=== PATIENT | male | born 1970 | race Caucasian/White ===

== ENCOUNTER 2017-10-02 18:08 | Emergency (ER) | payer OTHER ==
[2017-10-02 18:20] VITALS: BP 159/106
--- NOTE | 2017-10-10 08:49 | UC ---
Lower Extremity/Ankle HPI - HPI Summary HPI Summary: Patient to urgent care complaining of right calf pain and swelling has been getting worse over the past week - History of Current Complaint Chief Complaint: UCLowerExtremity Stated Complaint: LEG PAIN Time Seen by Provider: 10/02/17 19:46 Hx Obtained From: Patient Onset/Duration: Gradual Onset, Lasting Weeks - 1, Worse Since - Getting worse daily Severity Initially: Moderate Severity Currently: Moderate Pain Intensity: 4 Pain Scale Used: 0-10 Numeric Aggravating Factor(s): Standing, Ambulation Alleviating Factor(s): Nothing Able to Bear Weight: Yes - Allergies/Home Medications Allergies/Adverse Reactions: Allergies Allergy/AdvReac Type Severity Reaction Status Date / Time No Known Allergies Allergy Verified 08/21/16 14:42 PMH/Surg Hx/FS Hx/Imm Hx Previously Healthy: No Cardiovascular History: Hypertension Psychological History: Anxiety - Surgical History Surgical History: None - Family History Known Family History: Positive: None - Social History Occupation: Employed Full-time Lives: With Family Alcohol Use: Weekly Alcohol Amount: wine monthly Substance Use Type: Marijuana Smoking Status (MU): Current Every Day Smoker Type: Cigarettes, eCigarettes Amount Used/How Often: 1/4 PPD Length of Time of Smoking/Using Tobacco: 27 yrs Have You Smoked in the Last Year: Yes Household Exposure Type: Cigarettes Cessation Counseling: Patient Advised to Stop Review of Systems Constitutional: Negative Skin: Negative Eyes: Negative ENT: Negative Respiratory: Negative Cardiovascular: Negative Gastrointestinal: Negative Genitourinary: Negative Motor: Negative Neurovascular: Negative Musculoskeletal: Edema - Right lower leg, Myalgia - Right lower leg Neurological: Negative Psychological: Negative Is Patient Immunocompromised?: No All Other Systems Reviewed And Are Negative: Yes Physical Exam Triage Information Reviewed: Yes Appearance: Well-Appearing, No Pain Distress, Well-Nourished Vital Signs: Initial Vital Signs Temp 98.1 F 10/02/17 18:13 Pulse 79 10/02/17 18:13 Resp 18 10/02/17 18:13 BP 159/106 10/02/17 18:13 Pulse Ox 97 10/02/17 18:13 Vital Signs Reviewed: Yes Eye Exam: Normal Eyes: Positive: Conjunctiva Clear ENT Exam: Normal ENT: Positive: Normal ENT inspection, Hearing grossly normal. Negative: Trismus , Muffled voice, Hoarse voice Dental Exam: Normal Neck exam: Normal Neck: Positive: Supple, Nontender Respiratory Exam: Normal Respiratory: Positive: No respiratory distress, No accessory muscle use Cardiovascular Exam: Normal Cardiovascular: Positive: RRR, Pulses Normal, Brisk Capillary Refill Musculoskeletal Exam: Other Musculoskeletal: Positive: Strength Intact, ROM Limited @ - right calf, Edema @ - right calf Neurological Exam: Normal Neurological: Positive: Alert Psychological Exam: Normal Skin Exam: Normal Lower Extremity Course/Dx - Course Course Of Treatment: Transfer patient to keep the [facility] emergency department for further evaluation of swelling in his right lower leg - Differential Dx/Diagnosis Provider Diagnoses: Swelling right lower leg, hypertension in poor control, nicotine dependence Discharge - Sign-Out/Discharge Documenting (check all that apply): Discharge - Discharge Plan Condition: Guarded Disposition: HOME Discharge Disposition Comment: by private car to [facility] emergency department ambulance for Patient Education Materials: Deep Vein Thrombosis (ED), Leg Edema (ED), Deep Vein Thrombosis Prevention (ED) Referrals: José Wynn MD [Primary Care Provider] - Additional Instructions: Valerie have given me some information about DVTs. Please go directly to the emergency department so you can have an ultrasound of your right lower leg to assure that a proper diagnosis - Billing Disposition and Condition Condition: GUARDED Disposition: HOME
== END 2017-10-02 20:05 | disposition home or self-care (01) ==
LOC: UCEAST 18:08
DX: R60.0 Localized edema (principal); M79.661 Pain in right lower leg; I10 Essential (primary) hypertension; F41.9 Anxiety disorder, unspecified; F17.210 Nicotine dependence, cigarettes, uncomplicated
CPT/HCPCS: 99212; G0463

== ENCOUNTER 2017-10-02 20:23 | Emergency (ER) | payer OTHER ==
--- NOTE | 2017-10-02 21:30 | RAD ---
HISTORY: Right leg pain TECHNIQUE: Multiple transverse and longitudinal ultrasound images were obtained of the veins of the right lower extremity using grayscale, color Doppler, and spectral Doppler imaging with and without compression and with augmentation. FINDINGS: VEINS: The common femoral vein, deep femoral vein, femoral vein and popliteal vein are compressible throughout their course, with normal flow on color Doppler imaging and normal response to augmentation on spectral Doppler imaging. SOFT TISSUES: The right popliteal fossa there is an avascular collection that is mostly anechoic with innumerable septations measuring 6.4 cm in length and approximately 2.6 x 4.4 cm in the axial plane. IMPRESSION: 1. No sonographic evidence of deep vein thrombosis. 2. Complex Bolanos's cyst.
[2017-10-02 22:13] VITALS: BP 164/85
--- NOTE | 2017-10-02 22:23 | ED ---
Lower Extremity - HPI Summary HPI Summary: Patient is a 46-year-old male presenting to the ED from urgent care with a chief complaint of right posterior knee and right calf pain which is been present 3 days. He endorses swelling and tightness. He remains ambulatory, but with a mild amount of pain. There is no erythema or warmth to the knee or posterior leg. Small amount of swelling and effusion, but calf is equal size to the contralateral calf. He is otherwise healthy, takes no medications and does not have a history of arthritis. Denies fevers, sweats, chills. He was sent over from urgent care to rule out a DVT. He denies any blood thinners or known coagulant disorder. He has never had anything like this before. He states per his work he is on his knees and ambulating frequently. - History of Current Complaint Chief Complaint: EDExtremityLower Stated Complaint: RT LEG PAIN Time Seen by Provider: 10/02/17 21:47 Hx Obtained From: Patient Onset of Pain: Hours Onset/Duration: Hours Severity Initially: Moderate Severity Currently: Moderate Pain Intensity: 0 Pain Scale Used: 0-10 Numeric Timing: Constant Location: Is Discrete @ - posterior calf and knee pain with swelling Character Of Pain: Aching Associated Signs And Symptoms: Positive: Swelling Aggravating Factor(s): Standing, Ambulation Alleviating Factor(s): Rest Able to Bear Weight: No - Risk Factors Gout Risk Factors: Negative DVT Risk Factors: Negative Septic Arthritis Risk Factor: Negative - Allergies/Home Medications Allergies/Adverse Reactions: Allergies Allergy/AdvReac Type Severity Reaction Status Date / Time No Known Allergies Allergy Verified 08/21/16 14:42 PMH/Surg Hx/FS Hx/Imm Hx Previously Healthy: Yes Cardiovascular History: Reports: Hx Hypertension - CONTROLLED WITH MEDS Denies: Hx Pacemaker/ICD Respiratory History: Reports: Hx Seasonal Allergies, Hx Sleep Apnea - new CPAP user, compliance issues., Other Respiratory Problems/Disorders - KNOWN BENIGN NODULE TO RT LUNG GI History: Reports: Hx Gastroesophageal Reflux Disease, Hx Ulcer History: Reports: Hx Kidney Stones Musculoskeletal History: Reports: Hx Back Problems - chronic pain, Hx Tendonitis - right "tennis" elbow Sensory History: Denies: Hx Hearing Aid Neurological History: Reports: Hx Headaches Psychiatric History: Reports: Hx Anxiety, Hx Depression, Hx Panic Disorder - Immunization History Hx Pertussis Vaccination: No Immunizations Up to Date: Unable to Obtain/Confirm Infectious Disease History: Yes Infectious Disease History: Reports: Hx of Known/Suspected MRSA Denies: Traveled Outside the [place] in Last 30 Days - Social History Occupation: Employed Full-time Lives: Dormitory/Roommates Alcohol Use: Weekly Alcohol Amount: wine monthly Hx Substance Use: Yes Substance Use Type: Reports: None, Marijuana Smoking Status (MU): Current Every Day Smoker Type: Cigarettes, eCigarettes Amount Used/How Often: 1/4 PPD Length of Time of Smoking/Using Tobacco: 27 yrs Have You Smoked in the Last Year: Yes Review of Systems Constitutional: Negative Negative: Fever, Chills, Fatigue, Skin Diaphoresis Eyes: Negative Cardiovascular: Negative Gastrointestinal: Negative Positive: no symptoms reported, see HPI Positive: Arthralgia Skin: Negative Psychological: Normal All Other Systems Reviewed And Are Negative: Yes Physical Exam Triage Information Reviewed: Yes Vital Signs On Initial Exam: Initial Vitals Temp Pulse Resp BP Pulse Ox 97.1 F 77 18 193/114 100 10/02/17 20:26 10/02/17 20:26 10/02/17 20:26 10/02/17 20:26 10/02/17 20:26 Vital Signs Reviewed: Yes Appearance: Positive: Well-Appearing, Well-Nourished Skin: Positive: Skin Color Reflects Adequate Perfusion Head/Face: Positive: Normal Head/Face Inspection Eyes: Positive: EOMI, JULIAN Neck: Positive: Supple, No Lymphadenopathy Respiratory/Lung Sounds: Positive: Clear to Auscultation, Breath Sounds Present Cardiovascular: Positive: Pulses are Symmetrical in both Upper and Lower Extremities Musculoskeletal: Positive: Normal, Strength/ROM Intact, Anselmo Sign Right. Negative: Anselmo Sign Left, Edema Left, Edema Right Neurological: Positive: Speech Normal Psychiatric: Positive: Normal, Affect/Mood Appropriate AVPU Assessment: Alert Diagnostics - Vital Signs Vital Signs Temp Pulse Resp BP Pulse Ox 10/02/17 22:12 97.0 F 72 18 164/85 100 10/02/17 20:26 97.1 F 77 18 193/114 100 - Laboratory Lab Statement: Any lab studies that have been ordered have been reviewed, and results considered in the medical decision making process. Lower Extremity Course/Dx - Course Course Of Treatment: During the course of treatment, the patient is evaluated for DVT versus Bolanos's cyst. IMPRESSION: 1. No sonographic evidence of deep vein thrombosis. 2. Complex Bolanos's cyst. I've discussed with Dr. Kimbrough. I will refer him to ortho. I have encouraged ice, ibuprofen and ortho consult. He agrees to this and is OK with discharge at this time. - Diagnoses Differential Diagnosis/HQI/PQRI: Positive: Bursitis Provider Diagnoses: Bakers cyst Discharge - Sign-Out/Discharge Documenting (check all that apply): Discharge - unable - Discharge Plan Condition: Stable Disposition: HOME Patient Education Materials: Bakers Cyst (ED) Referrals: Tan Rodriguez MD [Medical Doctor] - José Wynn MD [Primary Care Provider] - Additional Instructions: Anti-inflammatories which include ibuprofen 600mg three times daily Follow up with ORTHO for further medical management and any structural underlying cause - Billing Disposition and Condition Condition: STABLE Disposition: HOME
== END 2017-10-02 22:12 | disposition home or self-care (01) ==
LOC: ED 20:23
DX: M71.21 Synovial cyst of popliteal space [Baker], right knee (principal); I10 Essential (primary) hypertension; F17.210 Nicotine dependence, cigarettes, uncomplicated; M79.661 Pain in right lower leg
CPT/HCPCS: 99282

== ENCOUNTER 2019-03-06 11:44 | Emergency (ER) | payer MEDICAID, OTHER ==
[2019-03-06 11:50] VITALS: BP 194/100
--- NOTE | 2019-03-06 12:09 | UC ---
Dental HPI - HPI Summary HPI Summary: 48-year-old male presents with complaints of left upper dental pain since yesterday. Describes as constant throbbing. States has tried aspirin, naproxen, and tramadol without relief. Denies fever, chills, trismus, facial swelling, or drainage. - History of Current Complaint Chief Complaint: UCDentalProblem Stated Complaint: DENTAL COMPLAINT Time Seen by Provider: 03/06/19 12:04 Hx Obtained From: Patient Pain Intensity: 9 - Allergies/Home Medications Allergies/Adverse Reactions: Allergies Allergy/AdvReac Type Severity Reaction Status Date / Time No Known Allergies Allergy Verified 03/06/19 11:51 PMH/Surg Hx/FS Hx/Imm Hx Cardiovascular History: Hypertension Psychological History: Anxiety - Surgical History Surgical History: None - Family History Known Family History: Positive: Non-Contributory - Social History Occupation: Unemployed Lives: With Family Alcohol Use: Weekly Alcohol Amount: wine monthly Substance Use Type: Marijuana Smoking Status (MU): Current Every Day Smoker Type: Cigarettes, eCigarettes Amount Used/How Often: 1/4 PPD Length of Time of Smoking/Using Tobacco: 27 yrs Have You Smoked in the Last Year: Yes Household Exposure Type: Cigarettes Review of Systems All Other Systems Reviewed And Are Negative: Yes Constitutional: Negative: Fever, Chills ENT: Positive: Dental Pain. Negative: Sore Throat, Ear Ache, Nasal Discharge, Sinus Congestion, Sinus Pain/Tenderness Respiratory: Positive: Negative Cardiovascular: Positive: Negative Gastrointestinal: Positive: Negative Genitourinary: Positive: Negative Musculoskeletal: Positive: Negative Neurological: Positive: Negative Is Patient Immunocompromised?: No Physical Exam - Summary Physical Exam Summary: GENERAL APPEARANCE: Alert and cooperative adult male who appears to be uncomfortable holding the left side of his face. MOUTH/THROAT: Pharynx normal. No tonsilar inflammation, swelling, exudate, or lesions. Uvula midline. Multiple missing teeth and teeth in poor condition. The left upper 1st molar with a large dental patel at the base of the tooth. Mild gingival erythema without induration, fluctuance, or drainage. No trismus. NECK: Neck supple, non-tender without lymphadenopathy. CARDIAC: Normal S1 and S2. No S3, S4 or murmurs. Rhythm is regular. There is no peripheral edema, cyanosis or pallor. Extremities are warm and well perfused. Capillary refill is less than 2 seconds. Peripheral pulses intact. LUNGS: Clear to auscultation without rales, rhonchi, wheezing or diminished breath sounds. ABDOMEN: Positive bowel sounds. Soft, nondistended, nontender. No guarding or rebound. No masses or hepatosplenomegally. MUSKULOSKELETAL: ROM intact to all extremities. No joint erythema or tenderness. Normal muscular development. Normal gait. SKIN: Skin normal color, texture and turgor with no lesions or eruptions. Triage Information Reviewed: Yes Vital Signs: Initial Vital Signs Temp 98 F 03/06/19 11:47 Pulse 60 03/06/19 11:47 Resp 16 03/06/19 11:47 BP 194/100 03/06/19 11:47 Pulse Ox 100 03/06/19 11:47 Vital Signs Reviewed: Yes Dental Complaint Course/Dx - Course Course Of Treatment: 48-year-old male presents with complaints of left upper dental pain since yesterday. Describes as constant throbbing. States has tried aspirin, naproxen, and tramadol without relief. Denies fever, chills, trismus, facial swelling, or drainage. Afebrile. Hypertensive otherwise VSS. Patient had multiple missing teeth and teeth in poor condition. The left upper 1st molar with a large dental patel at the base of the tooth. Mild gingival erythema without induration, fluctuance, or drainage. No trismus. Remainder of exam was unremarkable. Will treat for a likely dental infection with Augmentin 875 mg BID x 10 days. Recommending OTC analgesics for pain and close follow up with dentist for definitive care. Anticipatory guidance and warning symptoms reviewed with patient. Verbalizes understanding and agrees with POC. - Differential Dx/Diagnosis Differential Diagnosis/Dx: Dental Abscess, Dental Caries, Fractured Tooth, Gingivitis, Odontogenic Pain, Peridontic Disease Provider Diagnosis: Pain, dental Discharge ED - Sign-Out/Discharge Documenting (check all that apply): Patient Departure All imaging exams completed and their final reports reviewed: No Studies - Discharge Plan Condition: Stable Disposition: HOME Prescriptions: Amoxicillin/Clavulanate TAB* [Augmentin TAB 875*] 875 mg PO BID #20 tab Patient Education Materials: Toothache (ED) Referrals: Seun Ramos [employer] [Primary Care Provider] - Additional Instructions: Start Augmentin 875 mg 1 tablet twice daily for 10 days. Take acetaminophen (Tylenol) or ibuprofen (Advil, Motrin) according to directions as needed for pain. Be sure to rinse your mouth out with a warm salt water solution after every time you eat to remove any debris. Make an appointment with your dentist at next available appointment. Seek immediate medical attention in the emergency room if you develop fever greater than 100.5 F, you are unable to open of close your mouth, are unable to swallow, have difficulty breathing, or any worsening of symptoms. - Billing Disposition and Condition Condition: STABLE Disposition: Home
== END 2019-03-06 12:20 | disposition home or self-care (01) ==
LOC: UCEAST 11:44
DX: K08.89 Other specified disorders of teeth and supporting structures (principal); I10 Essential (primary) hypertension; F41.9 Anxiety disorder, unspecified; F17.210 Nicotine dependence, cigarettes, uncomplicated
CPT/HCPCS: 99212; G0463

== ENCOUNTER 2019-06-22 18:04 | Observation (INO) | payer OTHER ==
--- OUTSIDE RECORDS SUMMARY | 2019-06-22 18:33 | XMS REPORT ---
:1970 Author Organization [facility] [employer] Care Team Providers Name Role Phone Dodie Gallardonda Primary Care Physician Unavailable Allergies, Adverse Reactions, Alerts Allergy Code CodeSystem Reaction Severity Criticality Status Start Substance Date Moderate Medications Medication Medication Medication Start Stop Route Dose Status Fill Code CodeSystem Date Date Instructions methylphenidate 5318718 RxNorm 2019- oral 54 mg completed for 30 HCl 5- 06-08 tablet day(s) extended release 24hr methylphenidate 1908277 RxNorm 2019- oral 54 mg completed HCl 06-10 tablet extended release 24hr bupropion HCl 663179 RxNorm oral 150 mg active for 30 3-26 tablet day(s) extended release 24 hr clonazepam 19740814 RxNorm 2019- oral 1 mg completed 06-10 tablet clonazepam 19740814 RxNorm 2019- oral 1 mg active for 15 6-10 -26 tablet day(s) methylphenidate 9491580 RxNorm 2019- oral 36 mg completed for 30 HCl - tablet day(s) extended release 24hr methylphenidate 0377733 RxNorm 2019- oral 54 mg active for 15 HCl 6-10 -26 tablet day(s) extended release 24hr clonazepam 19740814 RxNorm 2019- oral 1 mg completed for 30 - 06-08 tablet day(s) methylphenidate 9602170 RxNorm 2019- oral 36 mg 1 completed 1 tablet HCl - 05-09 tablet once a day extended for 30 day(s) release 24hr once a day clonazepam 19740814 RxNorm 2019- oral 1 mg completed for 30 -24 05-09 tablet day(s) zolpidem 397002 RxNorm 2019- oral 10 mg completed for 10 -09 tablet day(s) methylphenidate 6813875 RxNorm 2019- oral 54 mg 1 completed Take 1 tablet HCl 6-10 07-10 tablet every extended morning for release 30 day(s) 24hr every morning zolpidem 330462 RxNorm 2019- oral 10 mg 1 completed 1 tablet at 10-13-08 tablet bedtime for at 30 day(s) bedtime clonazepam 567884 RxNorm 2019- oral 1 mg 1 completed Take 1 tablet 6- 07-10 tablet three times three a day as times a needed for 30 day day(s) gabapentin 601114 RxNorm oral 300 mg active for 30 capsule day(s) bupropion HCl 718947 RxNorm 2019- oral 300 mg completed for 30 - 05- tablet day(s) extended release 24 hr bupropion HCl 808605 RxNorm 2019- oral 300 mg active for 30 11-12- tablet day(s) extended release 24 hr Problems Problem Name Code CodeSystem Alternate Alternate Start End Status Narrative Code CodeSystem Date Date Cocaine 50706128 SNOMED-CT Active dependence, in - remission Unspecified 11383825 SNOMED-CT Active anxiety 5-24 disorder 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, 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 Relevant diagnostic tests/laboratory data Narrative No Information Procedures Procedure Code CodeSystem Target Date of Status Service Device Device Device Name Site Procedure Delivery Code Name UID Location Psychotherap [id number] SNOMED-CT () 2018-10-29 complete Mental y, 45 04 d Health- minutes with [place] patient [address], [id number] Psychotherap [id number] SNOMED-CT () 2019-03-11 complete Mental y, 45 04 d Health- minutes with [place] patient [address], [id number] [phone] [place] [id number] SNOMED-CT () 2018-10-29 complete Mental other 7 d Health- outpatient [place] visit for [address], [facility], of an [facility] established [id number] patient, [phone] which requires at least 2 of these 3 [place] components: An expanded problem focused history; An expanded problem focused examination; Medical decision making of low Office or [id number] SNOMED-CT () 2019-01-26 complete Mental other 7 d Health- outpatient [place] visit for [address], established [id number] patient, [phone] which requires at least 2 of these 3 [place] components: An expanded problem focused history; An expanded problem focused examination; Medical decision making of low Office or [id number] SNOMED-CT () 2019-05-12 complete Mental other 6 d Health- outpatient [place] visit for [address], established [id number] patient, [phone] which requires at least 2 of these 3 [place] components: A problem focused history; A problem focused examination; Stra[place] ter[place] medical decision making. Counselin SNOMED-CT () 2018-10-13 complete Mental d Health[address], [phone] SNOMED-CT () 2019-05-04 complete Mental d [address], [id number] [phone] Encounters/Encounter Diagnoses Encounter Encounter Diagnosis Diagnosis Diagnosis Date of Service Name Code Code Name CodeSystem Diagnosis Delivery Location Non-Billable 08474 SNOMED-CT 2019-05-31 [facility] , , , Vital Signs No Information Social History Element Description Description Start End Code CodeSystem AdditionalInfo Date Date SexAssignedAtBirth Male 1971-0 M AdministrativeGender 11-28 Hospital Discharge Instructions Reason For Referral Medical Equipment FDA Assessments
--- OUTSIDE RECORDS SUMMARY | 2019-06-22 18:33 | XMS REPORT ---
:1970 Author Name Lola Gallardo Address [facility] [address] [place] [address] Care Team Providers Name Role Phone Lola Gallardo Unavailable Unavailable Shirin Garzon Unavailable Unavailable Allergies, Adverse Reactions, Alerts Allergy Code CodeSystem Reaction Severity Status Substance RxNorm Medications Medication Medication Medication Start Route Dose Status Fill Code CodeSystem Date Instructions RxNorm NoCurrentDosage No Longer NoCurrentFreque Active ncy methylphenidate RxNorm oral 36 mg tablet No for 30 HCl extended Longer day(s) release 24hr Active zolpidem RxNorm oral 10 mg tablet No for 10 Longer day(s) Active clonazepam RxNorm 2018-0 oral 1 mg tablet No for 30 4-24 Longer day(s) Active methylphenidate RxNorm 2019-0 oral 36 mg 1 tablet No 1 tablet HCl 4-09 extended Longer once a day release 24hr Active for 30 day(s) once a day zolpidem RxNorm 2019-0 oral 10 mg 1 tablet No 1 tablet at 4-09 at bedtime Longer bedtime for Active 30 day(s) bupropion HCl RxNorm 2018-0 oral 150 mg tablet Active for 30 3-26 extended day(s) release 24 hr bupropion HCl RxNorm 2018-0 oral 300 mg tablet No for 30 3-26 extended Longer day(s) release 24 hr Active gabapentin RxNorm oral 300 mg Active for 30 capsule day(s) clonazepam RxNorm 2019-0 oral 1 mg tablet No for 30 5-09 Longer day(s) Active methylphenidate RxNorm 2019-0 oral 54 mg tablet No for 30 HCl 5-09 extended Longer day(s) release 24hr Active bupropion HCl RxNorm 2019-0 oral 300 mg tablet Active for 30 5-09 extended day(s) release 24 hr clonazepam RxNorm 2019-0 oral 1 mg tablet Active for 15 6-10 day(s) methylphenidate RxNorm 2019-0 oral 54 mg tablet Active for 15 HCl 6-10 extended day(s) release 24hr methylphenidate RxNorm oral 54 mg tablet No HCl extended Longer release 24hr Active clonazepam RxNorm oral 1 mg tablet No Longer Active methylphenidate RxNorm 2018- oral 54 mg 1 tablet No Take 1 tablet HCl 6-10 extended Longer every release 24hr Active morning for every morning 30 day(s) clonazepam RxNorm 2018- oral 1 mg 1 tablet No Take 1 tablet 6-10 three times a Longer three times day Active a day as needed for 30 day(s) Hospital Discharge Medications Medication Direction Start Date Status Indications Fill Instuctions No Discharge Medication Problems Problem Name Code CodeSystem Start Date End Date Status SNOMED-CT 2018-09-25 Active SNOMED-CT 2018-11-27 Active SNOMED-CT 2018-11-27 Active SNOMED-CT 2019-03-01 Active SNOMED-CT 2019-03-01 Active Laboratory Values/Results Test Test Code Code System Actual Result Date LOINC Procedures Procedure Name Code CodeSystem Target Site Date of Procedure SNOMED-CT () 2018-10-13 SNOMED-CT () 2018-10-29 SNOMED-CT () 2018-10-29 SNOMED-CT () 2019-01-26 SNOMED-CT () 2019-03-11 Encounter Diagnosis Code CodeSystem Description Date Finding Finding Status Code 17021 [facility] Psychotherapy - - Active Individual 30 min 5 SNOMED-CT Vital Signs Vitals Date Value Immunizations Vaccine Name Vaccine Code CodeSystem Date Status Social History Element Description Start Date End Date Code CodeSystem Description SNOMED-CT Hospital Discharge Instructions Reason For Referral
--- OUTSIDE RECORDS SUMMARY | 2019-06-22 18:33 | XMS REPORT | Continuity of Care Document ---
:1970 External Reference #:[id number] Author Name Kandi Chong N.P. (transmitted by agent of provider Qian Denny) Address [address], [place] [address] Care Team Providers Name Role Phone Jaja Jamison MD - Orthopaedic Care Team Information Fuel Cell Battery Technician [phone] Surgery Bianka Caputo MD - Internal Care Team Information Fuel Cell Battery Technician Medicine Problems Active Problems Provider Date Benign essential hypertension José Wynn M.D. Onset: 11/04/2011 Malaise and fatigue José Wynn M.D. Onset: 11/04/2011 Anxiety state José Wynn M.D. Onset: 11/04/2011 Edema José Wynn M.D. Onset: 11/04/2011 Disorder of lung José Wynn M.D. Onset: 11/04/2011 Multiple joint pain José Wynn M.D. Onset: 12/16/2011 Testicular hypofunction Douglas Boyer M.D.,FACP Onset: 02/20/2012 Sleep apnea José Wynn M.D. Onset: 05/25/2012 Low back pain José Wynn M.D. Onset: 10/07/2013 Essential hypertension José Wynn M.D. Onset: 08/09/2015 Lateral epicondylitis Tan Rodriguez MD Onset: 07/14/2018 Sprain of ankle Tan Rodriguez MD Onset: 07/14/2018 Social History Type Date Description Comments Sex Unknown ETOH Use Rarely consumes alcohol Tobacco Use Reviewed: Patient is a current began age 13, was a 04/11/14 smoker, smokes every day regular smoker at 16. Smoking around 10 cigaretts daily. Smoking Status Reviewed: Patient is a current began age 13, was a 06/22/19 smoker, smokes every day regular smoker at 16. Smoking around 10 cigaretts daily. Exercise Exercises regularly PT back exercises Type/Frequency daily; walks/kayaks Allergies, Adverse Reactions, Alerts Active Allergies Reaction Severity Comments Date NKDA 07/22/2011 Adhesive On Testosterone red irritation where patch 08/03/2013 Patch applied, itching Medications Active Medications SIG Qnty Indications Ordering Date Provider [facility] Nicotine one patch once 28units Seun Ramos NP 11/16/2018 Transdermal System Step daily for 2 2 weeks. 14mg/24HR Patches 24HR Cyclobenzaprine HCL Take 1 Tablet By 60tabs Seun Ramos NP 09/30/2018 10mg Mouth Three Tablets Times Daily as Needed For Spasm Amlodipine Besylate Take 1 Tablet By 90tabs I10 Seun Ramos NP 07/22/2018 5mg Mouth Every Day Tablets Tramadol HCL 1-2 tablets 28tabs M25.571 Seun Ramos NP 06/01/2018 50mg Tablets every 12 hours as needed for pain. Axiron Apply 1 pump to 90ml E29.1 Seun Ramos NP 12/29/2017 30mg/Act Solution one underarm and two pumps to the other underarm daily (alternating arm with two pumps) Ventolin HFA 2 puffs by mouth 8gm J98.4 Seun Ramos NP 08/10/2015 108(90Base) four times a day mcg/Act Aerosol as needed Blood Pressure Monitor monitor home BP 1units José Zheng 05/18/2015 Digital/Manual as directed Yung Wynn Inflate/Reg Misc Clonidine HCL Take 1 Tablet By 180tabs Seun Ramos NP 01/13/2013 0.3mg Tablets Mouth Two Times Daily Lisinopril-Hydrochlorot Take 2 Tablets 180tabs Seun Ramos NP 04/14/2012 hiazide By Mouth Every 20-12.5mg Tablets Day Clonazepam 1-2 po qd prn 40tabs José Zheng 1mg Tablets Yung Wynn Bupropion XL 1 po daily 60tabs Unknown 300mg Tablets Multi Complete daily Unknown Capsules Methylphenidate HCL ER 1 by mouth every Unknown 36mg day Tablets ER Gabapentin 1 by mouth three 90caps Unknown 300mg Capsules times a day as needed Clindamycin HCL take 1 tab three Unknown 300mg times a day x10 Capsules days History Medications Lipitor One tablet once 30tabs Seun Ramos NP 03/23/2019 - 20mg Tablets daily 04/07/2019 Immunizations CPT Code Status Date Vaccine Lot # [id number] Given 08/18/2017 Influenza Virus Vaccine, Quadrivalent, Split, [id number] Preservative Free [id number] Given 03/25/2016 Fluvirin Im 3Yrs And Older [id number] Given 05/16/2015 Fluvirin Im 3Yrs And Older [id number] Given 04/11/2014 Pneumonia Vaccine [id number] Given 04/11/2014 Influenza Virus Vaccine, Quadrivalent, Split, [id number] Preservative Free [id number] Given 10/07/2013 Tdap - Tetanus/Diptheria/Acellular Pertussis [id number] Given 05/15/2012 Influenza Virus 3Yrs & Over Vital Signs Date Vital Result Comment 06/22/2019 4:23pm Heart Rate 74 /min BP Systolic 148 mmHg BP Diastolic 80 mmHg Body Temperature 99.7 F 04/07/2019 4:18pm Height 66 inches 5'6" Weight 201.50 lb Heart Rate 67 /min BP Systolic 126 mmHg BP Diastolic 83 mmHg Body Temperature 97.9 F O2 % BldC Oximetry 98 % BMI (Body Mass Index) 32.5 kg/m2 Results Test Acquired Facility Test Result H/L Range Note Date Testosterone 03/15/2019 [facility] Free 4.11 Abnormal 4.26- 16. 1 Free & Total [address] Testosterone ng/dL 4 [place] [address] ng/dl [phone] Testosterone 242 ng/dL 240-950 2 CBC Auto 03/15/2019 [facility] White Blood 7.5 10^3/uL Normal 3.5-10.[address] [place] [address] [phone] Red Blood Count 4.21 10^6/uL Normal 4.18-5.48 Hemoglobin 13.6 g/dL Low 14.0-18.0 Hematocrit 39 % Low 42-52 Mean Corpuscular Volume 93 fL Normal 80-94 Mean Corpuscular Hemoglobin 32 pg High 27-31 Mean Corpuscular HGB Conc 35 g/dL Normal 31-36 Red Cell Distribution Width 13 % Normal 10-15 Platelet Count 228 10^3/uL Normal 150-450 Mean Platelet Volume 8.8 fL Normal 7.4-10.4 Abs Neutrophils 4.8 10^3/uL Normal 1.5-7.7 Abs Lymphocytes 2.0 10^3/uL Normal 1.0-4.8 Abs Monocytes 0.6 10^3/uL Normal 0-0.8 Abs Eosinophils 0.2 10^3/uL Normal 0-0.6 Abs Basophils 0.1 10^3/uL Normal 0-0.2 Abs Nucleated RBC 0.0 10^3/uL Granulocyte % 63.1 % Lymphocyte % 26.1 % Monocyte % 7.4 % Eosinophil % 2.7 % Basophil % 0.7 % Nucleated Red Blood Cells % 0.0 Laboratory test 03/15/2019 [facility] PSA Screening 0.586 Normal 0-4.000 3 finding [address] [facility] ng/[place] [address] [phone] Lipid Profile 03/15/2019 [facility] Triglycerides 77 mg/dL 4 (Trig/Chol/HDL) [address] [place] [address] [phone] Cholesterol 213 mg/dL 5 HDL Cholesterol 49.2 mg/dL 6 LDL Cholesterol 148 mg/dL 7 Comp Metabolic 03/15/2019 [facility] Sodium 139 mmol/L Normal 135-145 Panel [address] [place] [address] [phone] Potassium 4.3 mmol/L Normal 3.5-5.0 Chloride 103 mmol/L Normal 101-111 Co2 Carbon Dioxide 32 mmol/L Normal 22-32 Anion Gap 4 mmol/L Normal 2-11 Glucose 115 mg/dL High 70-100 Blood Urea Nitrogen 23 mg/dL Normal 6-24 Creatinine 1.02 mg/dL Normal 0.67-1.17 BUN/Creatinine Ratio 22.5 High 8-20 Calcium 9.8 mg/dL Normal 8.6-10.3 Albumin 4.5 g/dL Normal 3.2-5.2 Alkaline Phosphatase 68 U/L Normal 34-104 Alt 20 U/L Normal 7-52 Ast 20 U/L Normal 13-39 Egfr Non- 78.0 >60 Egfr 94.3 >60 8 Total Bilirubin 0.80 mg/dL Normal 0.2-1.0 Total Protein 7.0 g/dL Normal 6.4-8.9 Globulin 2.5 g/dL Normal 2-4 Albumin/Globulin Ratio 1.8 Normal 1-3 1 ADDITIONAL INFORMATION Testing performed by [facility]. This test was developed and its performance characteristics determined by [facility] in a manner consistent with CLIA requirements. This test has not been cleared or approved by the U.S. Food and Drug Administration. 2 ADDITIONAL INFORMATION Testing performed by Liquid Chromatography-Tandem Mass Spectrometry (LC-MS/MS). This test was developed and its performance characteristics determined by [facility] in a manner consistent with CLIA requirements. This test has not been cleared or approved by the U.S. Food and Drug Administration. Test Performed by: [facility] [place] [address] [facility]: Cj Mcclain M.D. Ph.D.; CLIA# [id number] 3 Serum levels of PSA measured using the [employer] DXI Hybritech immunoassay should not be interpreted as absolute evidence of the presence or absence of disease. The PSA value should be used in conjunction with other pertinent clinical diagnostic procedures. A PSA value in the range of 0.1 to 0.6 ng/ml is indeterminate if being used as an indicator of recurrent or residual disease. The values obtained with different assay methods or kits cannot be used interchangeably. 4 Desirable: <150 Borderline High: 150-199 High: 200-499 Very High: >500 5 Desirable: <200 Borderline High: 200-239 High: >239 6 Low: <40 Desirable: 40-60 High: >60 7 Desirable: <100 Near Optimal: 100-129 Borderline High: 130-159 High: 160-189 Very High: >189 8 Because ethnic data is not always readily available, this report includes an eGFR for both -Americans and non- Americans. The National Kidney Disease Education Program (NKDEP) does not endorse the use of the MDRD equation for patients that are not between the ages of 18 and 70, are , have extremes of body size, muscle mass, or nutritional status, or are non- or non-. According to the National Kidney Foundation, irrespective of diagnosis, the stage of the disease is based on the level of kidney function: Stage Description GFR(mL/min/1.73 m(2)) 1 Kidney damage with normal or decreased GFR 90 2 Kidney damage with mild decrease in GFR 60-89 3 Moderate decrease in GFR 30-59 4 Severe decrease in GFR 15-29 5 Kidney failure <15 (or dialysis) Procedures Date Code Description Status 01/17/2012 [id number] Diabetic Retinal Eye Exam Completed Medical Devices Description No Information Available Encounters Type Date Location Provider Dx Diagnosis Office Visit 04/07/2019 [facility] Internal Seun Ramos NP I10 Essential (primary ) 4:20p [facility] hypertension D64.9 Anemia, unspecified F17.210 Nicotine dependence, cigarettes, uncomplicated E29.1 Testicular hypofunction E78.5 Hyperlipidemia, unspecified Z31.41 Encounter for fertility testing Assessments Date Code Description Provider 06/22/2019 L03.211 Cellulitis of face Kandi Chong, N.P. 04/07/2019 I10 Essential (primary) hypertension Seun Ramos NP 04/07/2019 D64.9 Anemia, unspecified Seun Ramos NP 04/07/2019 F17.210 Nicotine dependence, cigarettes, uncomplicated Seun Ramos NP 04/07/2019 E29.1 Testicular hypofunction Seun Ramos NP 04/07/2019 E78.5 Hyperlipidemia, unspecified Seun Ramos NP 04/07/2019 Z31.41 Encounter for fertility testing Seun Ramos NP Plan of Treatment Future Appointment(s):10/07/2019 4:20 pm - Seun Ramos NP at [facility] Internal Medicine [facility]06/22/2019 - Kandi Chong, N.P.L03.211 Cellulitis of faceComments:For your cellulitis I am sending you to the ER as you most likely will need IV antibiotics. Functional Status Description No Information Available Mental Status Description No Information Available Referrals Description No Information Available
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
[2019-06-22] MEDS ORDERED: Morphine 4 MG/ML VIAL (1 ml) 4 MG/ML VIAL IV ONE ×2 (19:33→22:39)
[2019-06-22] MEDS ORDERED: Clindamycin 300 MG IVPREMIX* 300 MG/50 ML SDV IVPB ONE (19:33)
[2019-06-22] MEDS ORDERED: Dexamethasone IV* 4 MG/ML 1 ML (4 MG) IV SLOW PU ONE (19:33)
[2019-06-22 19:56] LABS: ABS Eosinophils 0.1 10^3/ul (0-0.6); ABS Lymphocytes 1.1 10^3/ul (1.0-4.8); ABS Monocytes 1.1 10^3/ul (0-0.8); ABS Neutrophils 10.7 10^3/ul (1.5-7.7); Eosinophil % 0.6 %; Hematocrit 37 % (42-52); Hemoglobin 13.2 g/dL (14.0-18.0); Lymphocyte % 8.2 %; Mean Corpuscular HGB Conc 35 g/dL (31-36); Mean Corpuscular Hemoglobin 32 pg (27-31); Mean Corpuscular Volume 92 fL (80-94); Mean Platelet Volume 8.8 fL (7.4-10.4); Platelet Count 213 10^3/uL (150-450); Red Blood Count 4.07 10^6 /uL (4.18-5.48); Red Cell Distribution Width 13 % (10-15)
[2019-06-22 20:09] LABS: Albumin 4.6 g/dL (3.2-5.2); Albumin/Globulin Ratio 1.5 (1-3); BUN/Creatinine Ratio 15.2 (8-20); C Reactive Protein 80.01 mg/L (<8.01); Calcium 9.6 mg/dL (8.6-10.3); EGFR African American 97.6 (>60); EGFR Non-African American 80.7 (>60); Potassium 3.1 mmol/L (3.5-5.0); Total Bilirubin 0.5 mg/dL (0.2-1.0); Total Protein 7.6 g/dL (6.4-8.9)
[2019-06-22] MEDS ORDERED: Iohexol 300* (CONTRAST) 10 ML SDV IV ONE (20:18)
[2019-06-22] MEDS ORDERED: NS 0.9% 1000 ML** 1,000 ML IV ONE (22:03)
[2019-06-22] MEDS ORDERED: cloNIDine TAB* 0.1 MG PO ONE (23:45)
[2019-06-23] MEDS ORDERED: Hydrochlorothiazide TAB* 25 MG PO ONE (00:05)
[2019-06-23] MEDS ORDERED: amLODIPine TAB* 5 MG PO ONE (00:05)
[2019-06-23] MEDS ORDERED: Lisinopril TAB* 10 MG PO ONE (00:05)
[2019-06-23] MEDS ORDERED: Ondansetron INJ* 2 MG/ML VIAL IV PRN (00:53)
[2019-06-23] MEDS ORDERED: Acetaminophen TAB* 325 MG PO PRN (00:53)
[2019-06-23] MEDS ORDERED: traMADol TAB* 50 MG PO PRN (00:53)
[2019-06-23] MEDS ORDERED: Cyclobenzaprine TAB* 10 MG PO PRN (00:53)
[2019-06-23] MEDS ORDERED: Piperacillin/Tazobac ADVAN(*) 3.375 GM in NS 0.9% 100 ML* 100 ML IVPB ONE (00:55)
[2019-06-23] MEDS ORDERED: KCL 20 MEQ/100 ML IVPREMIX* 20 MEQ/100 ML BAG IV ONE (00:56)
[2019-06-23] MEDS ORDERED: Clindamycin VIAL(*) 450 MG in NS 0.9% 50 ML* 50 ML IVPB SCH (01:00)
[2019-06-23] MEDS ORDERED: Zosyn per Pharmacy* NOTE FOLLOW UP SCH (01:00)
[2019-06-23] MEDS ORDERED: NS 0.9% w/ 20 Meq KCL 1000 ML* 1,000 ML IV SCH (01:00)
[2019-06-23] MEDS: Ibuprofen TAB* 400 MG PO PRN ×3 (03:18→19:50)
[2019-06-23] MEDS ORDERED: Albuterol HFA INHALER* 8 gm MDI INH PRN (03:50)
[2019-06-23] MEDS ORDERED: Gabapentin CAP(*) 300 MG PO ONE (03:51)
[2019-06-23] MEDS ORDERED: clonazePAM TAB(*) 1 MG PO SCH (04:00)
[2019-06-23] MEDS: Dexamethasone IV* 4 MG/ML 1 ML (4 MG) IV SLOW PU SCH ×3 (06:37→21:12)
[2019-06-23] MEDS: ZOSYN 3.375 GM Q8H per EXTENDED INFUSION IVPB SCH ×6 (06:51→21:24)
[2019-06-23 07:20] LABS: ABS Basophils 0.1 10^3/ul (0-0.2); ABS Lymphocytes 0.8 10^3/ul (1.0-4.8); ABS Monocytes 0.3 10^3/ul (0-0.8); ABS Neutrophils 10.7 10^3/ul (1.5-7.7); Hematocrit 35 % (42-52); Hemoglobin 12.1 g/dL (14.0-18.0); Mean Corpuscular HGB Conc 35 g/dL (31-36); Mean Corpuscular Hemoglobin 32 pg (27-31); Mean Corpuscular Volume 92 fL (80-94); Mean Platelet Volume 9.2 fL (7.4-10.4); Platelet Count 184 10^3/uL (150-450); Red Blood Count 3.79 10^6 /uL (4.18-5.48); Red Cell Distribution Width 13 % (10-15); White Blood Count 11.8 10^3/uL (3.5-10.8)
[2019-06-23 07:36] LABS: BUN/Creatinine Ratio 16.5 (8-20); Calcium 9.1 mg/dL (8.6-10.3); EGFR African American 107.6 (>60); EGFR Non-African American 88.9 (>60); Magnesium 2.1 mg/dL (1.9-2.7)
[2019-06-23] MEDS ORDERED: NS 0.9% 1000 ML** 1,000 ML IV SCH (08:45)
[2019-06-23] MEDS ORDERED: amLODIPine TAB* 5 MG PO SCH ×2 (09:00→21:00)
[2019-06-23] MEDS ORDERED: Aspirin EC TAB* 81 MG TAB.EC PO SCH (09:00)
[2019-06-23] MEDS ORDERED: Gabapentin CAP(*) 300 MG PO SCH (09:00)
[2019-06-23] MEDS ORDERED: Influenza VAC *QUAD* 2019-20* 0.5 ML SYRINGE IM ONE (09:00)
[2019-06-23 09:04] LABS: Erythrocyte Sed Rate 35 mm/Hr (0-14)
[2019-06-23] MEDS ORDERED: Gabapentin CAP(*) 300 MG PO PRN (11:00)
[2019-06-23] MEDS: Methylphenidate ER TAB* 18 MG PO SCH (11:07)
[2019-06-23] MEDS: clonazePAM TAB(*) 1 MG PO PRN ×2 (11:08→21:22)
[2019-06-23] MEDS: Nicotine PATCH 14 MG/24 HR* PATCH TRANSDERM SCH (11:09)
[2019-06-23] MEDS: Hydrochlorothiazide TAB* 25 MG PO SCH (11:09)
[2019-06-23] MEDS: Lisinopril TAB* 10 MG PO SCH (11:09)
[2019-06-23] MEDS: cloNIDine TAB* 0.1 MG PO SCH ×2 (11:10→21:14)
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
[2019-06-23] MEDS: BuPROPion XL* 300 MG TAB.XL PO SCH (12:54)
[2019-06-23] MEDS: BuPROPion XL* 150 MG TAB.XL PO SCH (12:54)
--- NOTE | 2019-06-23 13:21 | PN ---
Subjective Date of Service: 06/23/19 Interval History: patient seen in ICU this morning, doing better, able to swallow and his pain has significantly improved as compared to yesterday. HE REMAINS ON zosyn and decadron IV. Will transfer to med floor, start diet and observe, possible discharge tomorrow on po Augmentin pending his clinical progress Past Medical History: Unchanged from Admission Objective Active Medications: Acetaminophen (Tylenol Tab*) 650 mg PO Q4H PRN PRN Reason: FEVER/HEADACHE Albuterol (Ventolin Hfa Inhaler*) 1 puff INH QID PRN PRN Reason: SOB/WHEEZING Amlodipine Besylate (Norvasc Tab*) 5 mg PO BEDTIME [facility] Bupropion HCl (Bupropion Xl*) 300 mg PO DAILY [facility] Last Admin: 06/23/19 12:54 Dose: 300 mg Bupropion HCl (Wellbutrin Xl *) 150 mg PO DAILY [facility] Last Admin: 06/23/19 12:54 Dose: 150 mg Clonazepam (Klonopin Tab(*)) 1 mg PO TID PRN PRN Reason: ANXIETY Last Admin: 06/23/19 11:08 Dose: 1 mg Clonidine HCl (Catapres Tab*) 0.3 mg PO BID [facility] Last Admin: 06/23/19 11:10 Dose: 0.3 mg Dexamethasone (Decadron Tab*) 2 mg PO BID [facility] Dexamethasone Sodium Phosphate (Decadron Iv*) 4 mg IV SLOW PU Q8HR [facility] Stop: 06/23/19 23:59 Last Admin: 06/23/19 06:37 Dose: 4 mg Gabapentin (Neurontin Cap(*)) 300 mg PO TID PRN PRN Reason: PAIN - MILD Hydrochlorothiazide (Hydrodiuril Tab*) 25 mg PO DAILY [facility] Last Admin: 06/23/19 11:09 Dose: 25 mg Piperacillin Sod/Tazobactam (Sod 3.375 gm/ Sodium Chloride) 100 mls @ 25 mls/ hr IVPB Q8H [facility] Last Admin: 06/23/19 06:51 Dose: 25 mls/hr Ibuprofen (Motrin Tab*) 400 mg PO Q6H PRN PRN Reason: PAIN - SEVERE Last Admin: 06/23/19 11:10 Dose: 400 mg Lisinopril (Prinivil Tab*) 40 mg PO DAILY [facility] Last Admin: 06/23/19 11:09 Dose: 40 mg Methylphenidate HCl (Concerta Er Tab*) 54 mg PO DAILY [facility] Last Admin: 06/23/19 11:07 Dose: 54 mg Nicotine (Nicotine Patch 14 Mg/24 Hr*) 1 patch TRANSDERM DAILY [facility] Last Admin: 06/23/19 11:09 Dose: 1 patch Ondansetron HCl (Zofran Inj*) 4 mg IV Q6H PRN PRN Reason: NAUSEA Pharmacy Consult (Zosyn Per Pharmacy*) 1 note FOLLOW UP .ZOSYN PER PHARMACY [facility] Pharmacy Profile Note (Nicotine Patch Removal Note*) 1 note PATCH OFF 2100 [facility] Vital Signs - 8 hr 06/23/19 06/23/19 06/23/19 05:16 05:30 05:45 Temperature Pulse Rate 52 52 55 Respiratory 12 9 12 Rate Blood Pressure 134/81 136/71 117/75 (mmHg) O2 Sat by Pulse 91 93 88 Oximetry 06/23/19 06/23/19 06/23/19 06:00 06:31 06:45 Temperature Pulse Rate 55 50 46 Respiratory 13 14 16 Rate Blood Pressure 125/68 122/63 120/79 (mmHg) O2 Sat by Pulse 92 93 94 Oximetry 06/23/19 06/23/19 06/23/19 07:00 07:17 07:31 Temperature Pulse Rate 60 56 42 Respiratory 15 15 14 Rate Blood Pressure 117/77 122/73 109/66 (mmHg) O2 Sat by Pulse 94 91 93 Oximetry 06/23/19 06/23/19 06/23/19 07:41 07:45 07:49 Temperature 97.5 F Pulse Rate 41 Respiratory 7 18 Rate Blood Pressure 125/59 (mmHg) O2 Sat by Pulse 91 Oximetry 06/23/19 06/23/19 06/23/19 08:00 08:01 08:15 Temperature Pulse Rate 41 42 40 Respiratory 12 11 10 Rate Blood Pressure 123/71 105/67 (mmHg) O2 Sat by Pulse 92 89 91 Oximetry 06/23/19 06/23/19 06/23/19 08:30 08:45 09:00 Temperature Pulse Rate 39 41 42 Respiratory 15 13 12 Rate Blood Pressure 114/56 112/68 106/58 (mmHg) O2 Sat by Pulse 92 94 94 Oximetry 06/23/19 06/23/19 06/23/19 09:16 09:31 09:46 Temperature Pulse Rate 47 43 45 Respiratory 14 11 13 Rate Blood Pressure 125/82 142/87 (mmHg) O2 Sat by Pulse 94 95 92 Oximetry 06/23/19 06/23/19 06/23/19 10:00 10:16 11:00 Temperature Pulse Rate 49 42 Respiratory 19 17 18 Rate Blood Pressure 147/90 127/70 (mmHg) O2 Sat by Pulse 94 93 Oximetry 06/23/19 06/23/19 11:08 12:05 Temperature 97.4 F Pulse Rate 56 Respiratory 18 18 Rate Blood Pressure 159/90 (mmHg) O2 Sat by Pulse 95 Oximetry Oxygen Devices in Use Now: None Appearance: awake, alert. no distress. airway protected Eyes: No Scleral Icterus Ears/Nose/Mouth/Throat: Mucous Membranes Moist Neck: NL Appearance and Movements; NL JVP, Trachea Midline Respiratory: Symmetrical Chest Expansion and Respiratory Effort, Clear to Auscultation Cardiovascular: NL Sounds; No Murmurs; No JVD, No Edema Abdominal: NL Sounds; No Tenderness; No Distention Neurological: Alert and Oriented x 3 Result Diagrams: 06/23/19 07:10 06/23/19 07:10 Microbiology and Other Data: Microbiology 06/23/19 02:35 Nasal Screen MRSA (PCR) - Final Nasal Mrsa Not Detected Assess/Plan/Problems-Billing Assessment: 48 year old male admitted for left sided facial swelling secondary to submandibular sialadenitis with airway compromise on admssion concerning for semaj angina admitted to ICU started Zosyn and Decadron IV - Patient Problems (1) Submandibular gland infection Current Visit: Yes Status: Acute Code(s): K11.20 - SIALOADENITIS, UNSPECIFIED SNOMED Code(s): 30383201 Comment: - CT scan finding reviewed with radiologist. Did not suggest semaj angina - Will continue Zosyn today, decadron today. Plan D.c home in am on oral augmentin and decadron (2) Facial cellulitis Current Visit: Yes Status: Acute Code(s): L03.211 - CELLULITIS OF FACE SNOMED Code(s): 091508693 Comment: - CT scan finding reviewed with radiologist. Did not suggest semaj angina - Will continue Zosyn today, decadron today. Plan D.c home in am on oral augmentin and decadron (3) HTN (hypertension) Current Visit: Yes Status: Acute Code(s): I10 - ESSENTIAL (PRIMARY) HYPERTENSION SNOMED Code(s): 62177405 Comment: - continue amlodipine and lisinopril and HCTZ (4) Anxiety Current Visit: Yes Status: Acute Code(s): F41.9 - ANXIETY DISORDER, UNSPECIFIED SNOMED Code(s): 80610854 Comment: klonipin, wellbutrin (5) ADD (attention deficit disorder) Current Visit: Yes Status: Acute Code(s): F98.8 - OTH BEHAV/EMOTN DISORD W ONSET USLY OCCUR IN CHLDHD AND ADOL SNOMED Code(s): 66865414 Comment: methyophenidate
--- NOTE | 2019-06-23 17:48 | CONS ---
CONSULTATION REPORT: DATE OF CONSULT: 06/23/19 HISTORY OF PRESENT ILLNESS: This is a pleasant 48-year-old gentleman with interesting history of having had trauma to his face. Subsequent to that, he has been having discomfort and presents with sudden onset of swelling of the left cheek and mandible with some mild trismus. He was seen in the ED, was started on IV antibiotics and admitted to the hospital. PHYSICAL EXAM: Left-sided facial swelling. Significant tenderness in the left submandibular area. DIAGNOSTIC STUDIES: CT scan showed findings suggestive of inflammation of the submandibular area and my clinical impression is possible submandibular gland; however, there is no evidence of a stone or any dilated ducts. CLINICAL IMPRESSION: The patient with left mandibular, submandibular swelling with significant findings suggestive of infection without an abscess. Focal etiology could be a dental issue, although no obvious tooth was to blame on the CT scan nor was there any erosion of the mandible. Some swelling of the submandibular gland with inflammation and tenderness on clinical examination. With this in mind, I believe we should just clinically treat him with IV antibiotics and steroids to see if he improves. He should have a proper dental evaluation again. Possible CT of the teeth. I can reevaluate his submandibular area once it is resolved a little bit in the office after discharge. [id number]/[facility] #: [id number] MONICA
[2019-06-23] MEDS ORDERED: Nicotine Patch Removal NOTE PATCH OFF SCH (21:00)
[2019-06-24] MEDS: ZOSYN 3.375 GM Q8H per EXTENDED INFUSION IVPB SCH ×2 (05:50)
[2019-06-24 08:31] VITALS: BP 110/52
[2019-06-24] MEDS: Methylphenidate ER TAB* 18 MG PO SCH (08:34)
[2019-06-24] MEDS: BuPROPion XL* 150 MG TAB.XL PO SCH (08:34)
[2019-06-24] MEDS: cloNIDine TAB* 0.1 MG PO SCH (08:34)
[2019-06-24] MEDS: Ibuprofen TAB* 400 MG PO PRN (08:35)
[2019-06-24] MEDS: Hydrochlorothiazide TAB* 25 MG PO SCH (08:35)
[2019-06-24] MEDS: BuPROPion XL* 300 MG TAB.XL PO SCH (08:35)
[2019-06-24] MEDS: clonazePAM TAB(*) 1 MG PO PRN (08:36)
[2019-06-24] MEDS: Nicotine PATCH 14 MG/24 HR* PATCH TRANSDERM SCH (08:36)
[2019-06-24] MEDS: Lisinopril TAB* 10 MG PO SCH (08:36)
[2019-06-24] MEDS ORDERED: Dexamethasone TAB* 1 MG PO SCH (09:00)
--- NOTE | 2019-06-24 13:02 | DS ---
CC: Dr. Delgado; Dr. Jose Dash; Seun Ramos NP * DISCHARGE SUMMARY: DATE OF ADMISSION: 06/23/19 DATE OF DISCHARGE: 06/24/19 PRIMARY CARE PROVIDER: Seun Ramos NP. FINAL DISCHARGE DIAGNOSES: 1. Submandibular gland infection on the left side. 2. Left facial cellulitis. 3. Hypertension. 4. Attention deficit hyperactivity disorder. HOSPITAL COURSE: The patient presented to [facility] on 06/22/19 with ongoing left-sided face swelling, tenderness; progressive on and off for the past 3 months; however, over the past week his pain got more intense and more swollen. The swelling extended almost to his left eye. He had difficulty opening his mouth, had difficulty swallowing. He finally came into the emergency room. He had been evaluated outside for toothache, was prescribed clindamycin which did not seem to relieve the symptoms. He finally came into the ER. On arrival to the emergency room, he had no fever. His white count was 13,000 and sed rate was 35, CRP of 80. He was admitted to ICU given the CT scan finding on admission that showed large left submandibular gland infection with subcutaneous edema of the left neck and extending into the left station agent space with enlargement of the medial pterygoid muscle and edema of the left oropharynx and displacement of the oropharyngeal airway towards the right. He was started on Decadron IV, IV Zosyn, and he was seen and evaluated by me the following day. On the following day, he was seen and evaluated. He was in much significant improvement. His pain has decreased from 10 down to 3. He was hungry, asking for food, able to open his mouth. He was started on soft mechanical, then regular diet and maintained on IV antibiotics and I switched him to oral Decadron today. This morning, he seems to be in good spirits, eager to go home. I discussed the case with his oral surgeon and ENT. Consult was noted and appreciated from ENT and the patient is scheduled to follow up with oral surgeon today at 2 o'clock. Therefore, he was seen and evaluated and deemed stable for discharge from my medicine point of view. DISCHARGE MEDICATIONS: 1. Tylenol 650 as needed. 2. Decadron 2 mg t.i.d. for 3 days, then 1 mg t.i.d. for 3 days, then stop. 3. Augmentin 875 b.i.d. 4. Ibuprofen 600 mg p.o. q.6 hours p.r.n. for pain. 5. Lactobacillus 1 tab twice a day for a month. Continued Home Medications: 1. Bupropion 300 along with 150 daily for a total of 450. 2. Aspirin 81 daily. 3. Flexeril 10 t.i.d. 4. Methylphenidate 54 mg daily. 5. Clonidine tab 0.3 mg b.i.d. 6. Nicotine patch once a day. 7. Lisinopril with HCTZ 2 tabs daily. 8. Gabapentin 300 t.i.d. 9. Tramadol 50 every 6 hours as needed. 10. Ventolin p.r.n. 11. Clonazepam 1 mg t.i.d. 12. Multivitamin daily. 13. Testosterone. 14. Amlodipine 5 mg daily. He was told to discontinue: 1. Clindamycin 300 t.i.d. 2. Ibuprofen 400 mg. DISCHARGE RECOMMENDATIONS: 1. Follow up with his primary care as needed. 2. Follow up with his oral surgeon, Dr. Jose Dash, as scheduled today at 2 p.m. 3. Follow up with Dr. Donnie Delgado as needed. 4. Take all medications as prescribed. Avoid dehydration, plenty of fluids. DISCHARGE CONDITION: Stable DISCHARGE DISPOSITION: Stable [id number]/[facility] #: [id number] MTDD
--- NOTE | 2019-06-26 20:58 | DS ---
DISCHARGE SUMMARY: ADDENDUM: DISCHARGE DISPOSITION: Home. [id number]/[facility] #: [id number]
== END 2019-06-24 12:08 | disposition home or self-care (01) ==
LOC: ED 18:04 → ICU 06-23 00:49 → MEDTELE 06-23 09:41
PROVIDERS: ADMIT Internal Medicine; ATTEND Internal Medicine
DX: K11.20 Sialoadenitis, unspecified (principal); L03.211 Cellulitis of face; I10 Essential (primary) hypertension; F90.9 Attention-deficit hyperactivity disorder, unspecified type; K21.9 Gastro-esophageal reflux disease without esophagitis; F41.9 Anxiety disorder, unspecified; F32.9 Major depressive disorder, single episode, unspecified; F98.8 Other specified behavioral and emotional disorders with onset usually occurring in childhood and adolescence; Z79.899 Other long term (current) drug therapy; Z79.82 Long term (current) use of aspirin; Z87.442 Personal history of urinary calculi; Z86.14 Personal history of Methicillin resistant Staphylococcus aureus infection
CPT/HCPCS: 36415; 70491; 80048; 80053; 83735; 85025; 85652; 86140; 87040; 87641; 90686; 96365; 96366; 96367; 96375; 96376; 99285; A9270-GY; G0378; J1100; J2270; J2543; J3480; Q9967